=== PATIENT | male | born 1950 | race Hispanic/Latino ===

== ENCOUNTER 2019-11-14 07:01 | Observation (INO) | payer OTHER ==
[2019-11-14] VITALS (27 sets, daily range): BP systolic 91–149; BP diastolic 42–72
[~2019-11-14 07:01] MED LIST: IBUP-2070 PO; LOSA1TAB37 PO; METF-445 PO; PIOG15TA66 PO
[2019-11-14 08:08] LABS: BASOPHILS % (AUTO) 0.4 % (0.0-5.0); EOSINOPHILS % (AUTO) 1.9 % (0.0-8.0); HEMATOCRIT 35.2 % (42-54); LYMPHOCYTES % (AUTO) 17.6 % (21.0-51.0); MEAN CORPUSCULAR HEMOGLOBIN 29.8 pg (27.0-33.0); MEAN CORPUSCULAR HGB CONC 34.1 g/dL (32.0-36.0); MEAN CORPUSCULAR VOLUME 87.3 fL (79-99); MONOCYTES % (AUTO) 9.3 % (3.0-13.0); NEUTROPHILS % (AUTO) 70.3 % (40.0-77.0); PLATELET COUNT (AUTO) 511 K/uL (130-400); RED BLOOD CELL COUNT(AUTO) 4.03 MIL/uL (4.50-6.20); RED CELL DISTRIBUTION WIDTH 12.7 % (11.0-15.5); WHITE BLOOD COUNT (AUTO) 13.3 K/uL (4.8-10.8)
[2019-11-14 08:14] LABS: CREATININE 0.9 mg/dL (0.5-1.5)
[2019-11-14] MEDS ORDERED: LIDOCAINE PF 2% 5ML ABBOJECT ONE ×2 (12:02→13:06)
[2019-11-14] MEDS ORDERED: SUCCINYLCHOLINE 200MG/10ML SYR ONE ×2 (12:02→13:06)
[2019-11-14] MEDS ORDERED: PROPOFOL 10 MG/ML 20ML VIAL IV ONE ×2 (12:22→13:06)
[2019-11-14] MEDS ORDERED: DEXAMETHASONE SOD PHOSPHATE 10MG/ML 1ML VIAL ONE ×2 (12:22→13:07)
[2019-11-14] MEDS ORDERED: GLYCOPYRROLATE 1 MG/5 ML SYRINGE ONE (12:22)
[2019-11-14] MEDS ORDERED: ONDANSETRON HCL 4 MG/2 ML VIAL ONE ×2 (12:22→13:07)
[2019-11-14] MEDS ORDERED: MIDAZOLAM HCL 1 MG/ML 2ML VIAL ONE ×2 (12:22→13:06)
[2019-11-14] MEDS ORDERED: ROCURONIUM 10MG/1ML SYR 10 MG/ML ML ONE (12:22)
[2019-11-14] MEDS ORDERED: NEOSTIGMINE 5MG/5ML SYR IV ONE (12:22)
[2019-11-14] MEDS ORDERED: FENTANYL CITRATE PF 50 MCG/1 ML 2ML VIAL ONE ×2 (12:23→13:06)
[2019-11-14] MEDS ORDERED: CEFAZOLIN SODIUM 1 GM VIAL ONE ×2 (12:35→13:00)
[2019-11-14] MEDS ORDERED: BUPIVACAINE/EPI/PF 0.5% 30ML VIAL IJ ONE (12:36)
[2019-11-14] MEDS ORDERED: SODIUM CHLORIDE 0.9% 10 ML VIAL ONE ×2 (12:40→12:49)
[2019-11-14] MEDS ORDERED: GENTAMICIN 80 MG/NS 100 ML PB 100 ML IV ONE (13:00)
--- NOTE | 2019-11-14 16:11 | NUR ---
PT CARE TRANSFERRED TO [facility]. PT STABLE. Addendum: 11/14/19 at 1613 by ANA PINEDA RN RN Amended: Links added.
[2019-11-14] MEDS: GENTAMICIN 80 MG/NS 100 ML PB 100 ML IV SCH (20:14)
[2019-11-14] MEDS: CEFAZOLIN SODIUM 1 GM VIAL IVP SCH (20:14)
[2019-11-14] MEDS: LACTATED RINGERS 1000ML 1,000 ML IV SCH (20:22)
[2019-11-14] MEDS ORDERED: LOSARTAN/HYDROCHLOROTHIAZIDE 50-12.5MG TABLET PO SCH (21:00)
[2019-11-14] MEDS ORDERED: CEFAZOLIN SODIUM 1 GM VIAL IVP SCH (21:30)
[2019-11-14] MEDS: TRAMADOL HCL 50 MG TABLET PO PRN (21:39)
[2019-11-15 00:33] VITALS: BP 149/72
[2019-11-15] MEDS ORDERED: GENTAMICIN 80 MG/NS 100 ML PB 100 ML IV SCH (01:00)
[2019-11-15] MEDS: CEFAZOLIN SODIUM 1 GM VIAL IVP SCH ×2 (01:08→06:41)
[2019-11-15 04:00] VITALS: BP 157/72
[2019-11-15] MEDS: TRAMADOL HCL 50 MG TABLET PO PRN (04:46)
[2019-11-15] MEDS: LACTATED RINGERS 1000ML 1,000 ML IV SCH (07:20)
[2019-11-15] MEDS: GENTAMICIN 80 MG/NS 100 ML PB 100 ML IV SCH (07:20)
[2019-11-15 08:02] VITALS: BP 149/66
[2019-11-15] MEDS ORDERED: PIOGLITAZONE HCL 15 MG TAB PO SCH (09:00)
[2019-11-15] MEDS ORDERED: METFORMIN HCL 850 MG TABLET PO SCH (09:00)
--- NOTE | 2019-11-15 10:30 | NUR ---
WOUND CARE EXPLAINED PROCEDURE OF PROVIDING WOUND CARE, PT/FAMILY VERBALIZED UNDERSTANDING. INCISIONAL CARE DONE UTILIZING STERILE TECHNIQUE. OL DRESSING WITH MODERATE AMOUNT OF SEROSANGUINEOUS DRAINAGE WITH NO FOUL ODOR. NO REDNESS OR TENDERNESS TO SITE. NO ACTIVE DRAINAGE. MILD SWELLING. IODOFORM VISIBLE. IODOFORM WAS CUT AT APPROX 3INCHES AND COVERED WITH STERILE 4X4 GAUZE SECURED WITH TAPE. PT TOLERATED PROCEDURE WELL.
--- NOTE | 2019-11-15 12:04 | NUR ---
D/C patient educated on discharge instructions, follow up appointment and post op care for incision site given. patient and voice understanding on the order and requirements expected by Dr. Contreras regarding the care at home. Patient has dressing to lower back, dry and intact, no drainage noted. patient is awake alert and oriented; denies any pain and/or shortness of breath. IV to right AC discontinued and no signs of redness or phlebitis. all questions answered and patient displays no confusion and is engaged on wound care.
== END 2019-11-15 12:15 | disposition home or self-care (01) ==
LOC: EDH 07:01 → 4BH 17:26
PROVIDERS: ADMIT Neurological Surgery; ATTEND Neurological Surgery
DX: M96.89 Other intraoperative and postprocedural complications and disorders of the musculoskeletal system (principal); M48.061 Spinal stenosis, lumbar region without neurogenic claudication; I10 Essential (primary) hypertension; E11.9 Type 2 diabetes mellitus without complications; E78.00 Pure hypercholesterolemia, unspecified; Z79.899 Other long term (current) drug therapy
CPT/HCPCS: 10140; 36415; 80048; 82948 ×2; 85025; 87070; 87076; 87205; 96365; 96366; 96375; 96376; 99284; A4222; A4223; A4510; A4600; A4649; A6266; G0378 ×19; J0330 ×2; J0690 ×5; J1100 ×2; J1580 ×3; J2001 ×2; J2250; J2405 ×2; J2704; J2710; J3010; J3490; J7120

== ENCOUNTER → 2019-11-24 | Outpatient (CLI) | payer OTHER | END | disposition home or self-care (01) | LOC: OIH 08:05 | PROVIDERS: ATTEND Neurological Surgery | DX: M47.816 Spondylosis without myelopathy or radiculopathy, lumbar region (principal); M25.78 Osteophyte, vertebrae; M43.26 Fusion of spine, lumbar region | CPT/HCPCS: 72100 ==